=== PATIENT | male | born 1995 | race Caucasian/White ===

== ENCOUNTER 2021-08-04 20:09 | Emergency (ER) | payer MEDICAID, OTHER ==
[~2021-08-04] VITALS: Ht 175.3 cm; Wt 61.2 kg
[2021-08-04 20:34] VITALS: BP 120/81
== END 2021-08-05 01:00 | disposition left against medical advice (07) ==
LOC: EDBD 20:09 → ER 20:14
DX: F41.9 Anxiety disorder, unspecified (principal); Z53.21 Procedure and treatment not carried out due to patient leaving prior to being seen by health care provider

== ENCOUNTER 2021-10-24 15:07 | Emergency (ER) | payer MEDICAID ==
[~2021-10-24] VITALS: Ht 175.3 cm; Wt 47.6 kg
[2021-10-24 16:12] VITALS: BP 128/74
[2021-10-24] MEDS ORDERED: IBUP600T27 PO (16:36)
== END 2021-10-24 16:51 | disposition home or self-care (01) ==
LOC: ER 15:07
DX: S62.306A Unspecified fracture of fifth metacarpal bone, right hand, initial encounter for closed fracture (principal); J45.909 Unspecified asthma, uncomplicated; Z79.1 Long term (current) use of non-steroidal anti-inflammatories (NSAID); Z88.1 Allergy status to other antibiotic agents; W22.01XA Walked into wall, initial encounter; Y93.89 Activity, other specified; Y92.89 Other specified places as the place of occurrence of the external cause; Y99.8 Other external cause status
CPT/HCPCS: 29125; 73110; 73130

== ENCOUNTER 2022-03-21 03:27 | Emergency (ER) | payer MEDICAID ==
[~2022-03-21] VITALS: Ht 175.3 cm; Wt 49.9 kg
[~2022-03-21 03:27] MED LIST: IBUP600T27 PO
[2022-03-21] MEDS ORDERED: HYDROcodone-ACET 5/325MG TAB PO ONE (05:00)
[2022-03-21] MEDS ORDERED: TETANUS-DIPTH-ACEL PERTUSSIS 0.5ML SYR Tdap IM ONE (05:00)
[2022-03-21 07:12] VITALS: BP 121/70
== END 2022-03-21 07:28 | disposition short-term general hospital (02) ==
LOC: EDUNIT# 03:27 → ER 03:27 → EDBD 03:27 → ER 07:28
DX: S61.301A Unspecified open wound of left index finger with damage to nail, initial encounter (principal); J45.909 Unspecified asthma, uncomplicated; Z79.1 Long term (current) use of non-steroidal anti-inflammatories (NSAID); Z79.2 Long term (current) use of antibiotics; W23.0XXA Caught, crushed, jammed, or pinched between moving objects, initial encounter; Y93.89 Activity, other specified; Y92.89 Other specified places as the place of occurrence of the external cause; Y99.8 Other external cause status
CPT/HCPCS: 73130; 90471; 90715

== ENCOUNTER 2022-10-10 15:04 | Emergency (ER) | payer MEDICAID ==
[~2022-10-10] VITALS: Ht 175.3 cm; Wt 50.0 kg
[2022-10-10] MEDS ORDERED: DICL50TA2 PO (17:36)
[2022-10-10] MEDS ORDERED: CYCL-837 PO (17:36)
[2022-10-10 20:40] VITALS: BP 112/70
== END 2022-10-10 20:48 | disposition home or self-care (01) ==
LOC: ER 15:04 → EDBD 15:04 → ER 20:48
DX: M94.0 Chondrocostal junction syndrome [Tietze] (principal); J45.909 Unspecified asthma, uncomplicated; Z79.1 Long term (current) use of non-steroidal anti-inflammatories (NSAID); Z88.1 Allergy status to other antibiotic agents
CPT/HCPCS: 71101; 93005